=== PATIENT | male | born 1970 | race Two or more races ===

== ENCOUNTER 2020-10-17 17:52 | Emergency (ER) | payer SELFPAY ==
[~2020-10-17] VITALS: Ht 167.6 cm; Wt 87.3 kg
--- NOTE | 2020-10-17 18:12 | PHYS DOC ---
General Adult EDM: Chief Complaint: HYPERTENSION HPI: HPI: Patient is a 50 year old male with no past medical history currently on no prescription medications presents to the emergency department for evaluation due to high blood pressure. Prior to arrival patient visited a medical clinic for evaluation of rash bilateral arms and groin x2 weeks. At the clinic patient was noted to have an elevated blood pressure of 194/124 systolic on his right arm and 200/127 on his left arm. Patient was treated in the clinic with lisinopril 20 mg and metoprolol 50 mg and then sent to the emergency department for further evaluation. Here in the emergency department patient's blood pressure is 203/103. Patient also states he has had chest discomfort for the last 2 days. Patient's pain is substernal it comes and goes without radiation and he states that the pain is not too bad rating it a 6 out of 10. He denies any associated shortness of breath nausea or diaphoresis. Review of Systems: Review of Systems: Review of systems: Constitutional symptoms- No fever, no chills. Eyes- No Discharge, No Visual Loss Respiratory symptoms- No shortness of breath, No wheezing, No Dyspnea on Exertion Cardiovascular Systems; Positive chest pain, No Palpitations, No syncope Gastrointestinal symptoms: NO abdominal pain, no nausea, no vomiting or diarrhea. Genitourinary symptoms: No dysuria. Musculoskeletal symptoms: No back pain No extremity pain. NEUROLOGICAL Symptoms: No headache, no generalized weakness; No focal Weakness Skin: Positive rash. Heart Score: C/O Chest Pain: N/A HEART Score for Chest Pain: HEART Score for Chest Pain Response (Comments) Value History Slighlty/Non-Suspicious 0 ECG Nonspecific Repolarizatio 1 Age >45 - < 65 1 Risk Factors No Risk Factors 0 Total 2 Risk Factors: Risk Factors: DM, Current or recent (<one month) smoker, HTN, HLP, family history of CAD, obesity. Risk Scores: Score 0 - 3: 2.5% MACE over next 6 weeks - Discharge Home Score 4 - 6: 20.3% MACE over next 6 weeks - Admit for Clinical Observation Score 7 - 10: 72.7% MACE over next 6 weeks - Early Invasive Strategies Physical Exam: PE: Constitutional: Well developed, well nourished, no acute distress, non-toxic appearance. [] HENT: Normocephalic, atraumatic, bilateral external ears normal, oropharynx moist, no oral exudates, nose normal. [] Eyes: PERRLA, EOMI, conjunctiva normal, no discharge. [] Neck: Normal range of motion, no tenderness, supple, no stridor. [] Cardiovascular:Heart rate regular rhythm, no murmur [] Lungs & Thorax: Bilateral breath sounds clear to auscultation [] Abdomen: Bowel sounds normal, soft, no tenderness, no masses, no pulsatile masses. [] Skin: Warm, dry, no erythema, no rash. [] Back: No tenderness, no CVA tenderness. [] Extremities: No tenderness, no cyanosis, no clubbing, ROM intact, no edema. [] Neurologic: Alert and oriented X 3, normal motor function, normal sensory function, no focal deficits noted. [] Psychologic: Affect normal, judgement normal, mood normal. [] EKG: EKG: Performed at 1803 Rate 59 Normal sinus rhythm No ST elevation No ST depression T wave inversions 1 aVL V5 V6 No acute PR [] Radiology/Procedures: Radiology/Procedures: []XR CHEST 1V History: Reason: hypertension chest discomfort / Spl. Instructions: / History: Comparison: None. Findings: No consolidation or pleural effusion. Normal heart size. No pneumothorax. Impression: 1. No acute cardiopulmonary process. Electronically signed by: Edwin Easley DO (10/17/2020 6:42 PM) [facility] Course & Med Decision Making: Course & Med Decision Making Pertinent Labs and Imaging studies reviewed. (See chart for details) [] Patient was evaluated for chief complaint. Work-up consisted of laboratory analysis radiologic imaging and EKG. Results reviewed and discussed with patient. Patient's blood pressure at the time of my exam was greater than 200 systolic. I ordered labetalol 20 mg IV push. 1900 hrs. nursing informs me patient blood pressure was 165/95 with a heart rate of 68. At this time plan to hold patient's labetalol. Patient's troponin within normal limits. Will order aspirin. Will repeat troponin at 1900 hrs. 2027-- BLOOD pressure 160 systolic. Rx lisinopril/hctz Patient must follow up with PCP. Lela Disclaimer: Lela Disclaimer: This electronic medical record was generated, in whole or in part, using a voice recognition dictation system. Departure Departure Impression: Primary Impression: Chest pain Additional Impressions: Hypertension Rash Disposition: HOME / SELF CARE / HOMELESS Condition: STABLE Patient Instructions: Chest Pain (Nonspecific)-Brief, Hypertension, Rasburicase Injection Scripts Lisinopril/Hydrochlorothiazide (LISINOPRIL-HCTZ 10-12.5 MG TAB) 1 Each Tablet 1 TAB PO DAILY, #30 TAB 5 Refills Prov: JAVAN STERN DO 10/17/20 Prednisone (PREDNISONE) 20 Mg Tablet 1 TAB PO UD for 12 Days, #15 TAB Take 2 tabs days 1,2,3 1.5 tabs days 3,4,5 1 tab days 6,7,8 0.5 tab days 9,10,11 Prov: JAVAN STERN DO 10/17/20 JAVAN STERN DO Oct 17, 2020 18:12
[2020-10-17 18:34] LABS: BASO # 0.1 x10^3/uL (0.0-0.2); BASO % 0 % (0-3); EOS # 0.9 x10^3/uL (0.0-0.7); EOS % 8 % (0-3); HEMATOCRIT 45.4 % (39.0-53.0); HEMOGLOBIN 15.4 g/dL (13.0-17.5); LYMPH # 2.7 x10^3/uL (1.0-4.8); LYMPH % 25 % (24-48); MEAN CORPUSCULAR HEMOGLOBIN 30 pg (25-35); MEAN CORPUSCULAR HGB CONC 34 g/dL (31-37); MEAN CORPUSCULAR VOLUME 88 fL (79-100); MONO # 0.7 x10^3/uL (0.0-1.1); MONO % 6 % (0-9); NEUT # 6.8 x10^3/uL (1.8-7.7); NEUT % 61 % (31-73); PLATELET COUNT 164 x10^3/uL (140-400); RED BLOOD COUNT 5.18 x10^6/uL (4.30-5.70); RED CELL DISTRIBUTION WIDTH 14.1 % (11.5-14.5); WHITE BLOOD COUNT 11.2 x10^3/uL (4.0-11.0)
--- NOTE | 2020-10-17 18:44 | RAD ---
XR CHEST 1V History: Reason: hypertension chest discomfort / Spl. Instructions: / History: Comparison: None. Findings: No consolidation or pleural effusion. Normal heart size. No pneumothorax. Impression: 1. No acute cardiopulmonary process. Electronically signed by: Edwin Easley DO (10/17/2020 6:42 PM) [facility]
[2020-10-17 18:47] LABS: CALCIUM 8.5 mg/dL (8.5-10.1); GFR 79.1; POTASSIUM 3.7 mmol/L (3.5-5.1)
[2020-10-17 18:53] LABS: ALBUMIN 3.8 g/dL (3.4-5.0); ALBUMIN/GLOBULIN RATIO 0.9 (1.0-1.7); TOTAL BILIRUBIN 0.3 mg/dL (0.2-1.0); TOTAL PROTEIN 7.9 g/dL (6.4-8.2)
[2020-10-17] MEDS: LABETALOL 20 MG/4 ML DISP.SYRIN. IVP ONE ×2 (19:01→19:09)
--- NOTE | 2020-10-17 19:34 | EKG ---
[facility] [address] [place] [address] Test Date: 2020-10-17 Test Time: 18:03:26 Pat Name: MAGNO DOZIER Department: Room: Gender: M [employer] Supervisor: : 1970 Requested By: JAVAN STERN Order Number: [id number] Reading MD: Measurements Intervals Welcome Rate: 59 P: 21 ID: [id number] QRS: 39 QRSD: 90 T: 137 QT: 402 QTc: 402 Interpretive Statements SINUS RHYTHM INCOMPLETE RIGHT BUNDLE BRANCH BLOCK T ABNORMALITY IN ANTEROLATERAL LEADS ABNORMAL ECG RI6.02 No previous ECG available for comparison
[2020-10-17] MEDS ORDERED: methylPREDNISolone SOD SUCC PF 125 MG/2 ML VIAL. IV ONE (20:00)
[2020-10-17] MEDS ORDERED: diphenhydrAMINE 50 MG/ML VIAL IVP ONE (20:00)
[2020-10-17] MEDS ORDERED: FAMOTIDINE 20 MG/2 ML VIAL IVP ONE (20:00)
[2020-10-17] MEDS ORDERED: LISI1TAB23 PO (20:27)
[2020-10-17] MEDS ORDERED: PRED20TA PO (20:27)
[2020-10-17 21:04] VITALS: BP 162/97
== END 2020-10-17 21:35 | disposition home or self-care (01) ==
LOC: ER 17:52
DX: I10 Essential (primary) hypertension (principal); R07.2 Precordial pain; R21 Rash and other nonspecific skin eruption
CPT/HCPCS: 36415; 71045; 80053; 83880; 84484; 85025; 93005; 96374; 96375; 99285; J1200; J2930; J3490